=== PATIENT | female | born 1990 | race Caucasian/White ===

== ENCOUNTER 2024-12-14 19:38 | Emergency (ER) | payer MEDICARE ==
[2024-12-14 21:12] VITALS: TEMP 98.8
--- NOTE | 2024-12-14 21:27 | ERPHSYRPT ---
- History of Present Illness Patient Subjective Stated Complaint: pt reports cold symptoms beginning yesterday, states she has been having chills and sweating. pt denies pain. reports her anxiety is high. Triage Nursing Assessment: pt is aox3, pt is in no apparent distress, pupils perrl, afebrile, resps easy and non labored, cap refill < 3 seconds, radial pulses strong and equal, pt skin moist, warm, intact. Physician History: Cough and congestion, onset of symptoms yesterday Timing/Duration: yesterday Severity of Dyspnea-Max: moderate Severity of Dyspnea-Current: moderate Associated Symptoms: cough Allergies/Adverse Reactions: Penicillins Allergy (Verified 12/14/24 21:13) Rash Home Medications: Escitalopram Oxalate [Lexapro] 20 mg PO DAILY 12/14/24 [History] Venlafaxine HCl 37.5 mg [Effexor 37.5 mg] 37.5 mg PO DAILY 12/14/24 [History] Hx Tetanus, Diphtheria Vaccination/Date Given: (UNK) Hx Influenza Vaccination/Date Given: No Hx Pneumococcal Vaccination/Date Given: No Immunizations Up to Date: No Travel Risk - International Travel Have you traveled outside of the country in past 3 weeks: No - Emerging Infectious Disease Are you exhibiting symptoms associated with any current EIDs: No - Past Medical History Pertinent Past Medical History: Yes Psycho-Social History: Anxiety, Depression Other Medical History: "anxiety seizures" - Past Surgical History Past Surgical History: No - Female History Hx Last Menstrual Period: 12/09/24 Hx Now: No - Social History Smoking Status: Never smoker Exposure to second hand smoke: No Drug Use: none - Social Determinants of Health Will the patient participate in the screening: Yes Do you worry about a steady place to live?: No Do you have any problems with any of the following?: No known problems In the past 12 months,have you had to go without utilities?: No Transportation Issues: No Has anyone in your support network made you feel unsafe?: No Have you or anyone in your house had to go w/o enough food: No - Nursing Vital Signs Nursing Vital Signs: Initial Vital Signs Temperature 98.8 F 12/14/24 21:01 Pulse Rate 78 12/14/24 21:01 Respiratory Rate 20 12/14/24 21:01 Blood Pressure 114/79 12/14/24 21:01 O2 Sat by Pulse Oximetry 99 12/14/24 21:01 Pain Scale Pain Intensity 0 - Physical Exam General Appearance: no apparent distress, alert Eye Exam: PERRL/EOMI Ears, Nose, Throat Exam: pharyngeal erythema Neck Exam: normal inspection, supple, No meningismus, No carotid bruit Respiratory Exam: normal breath sounds, lungs clear Cardiovascular/Chest Exam: normal heart sounds, regular rate/rhythm Abdominal/Gastrointestinal Exam: soft, No tenderness, No distention, No mass Extremity Exam: non-tender, normal range of motion, normal inspection, no calf tenderness, no pedal edema Neurologic Exam: alert, oriented x 3, cooperative, diabetic educator II-XII nml as tested, sensation nml, No motor deficits Skin Exam: normal color, warm, No dry SpO2 Interpretation: normal SpO2: 98 Comments: Nasal congestion, postnasal drainage Ordered Tests: Active Orders 24 hr Category Date Time Status CHEST 2 VIEWS (PA AND LAT) Stat Exams 12/14/24 21:15 Taken Lab/Rad Data: Laboratory Results 12/14/24 12/14/24 Range/Units 21:30 21:30 Influenza Type A Ag NEGATIVE (NEGATIVE) Influenza Type B Ag NEGATIVE (NEGATIVE) RSV (PCR) NEGATIVE (NEGATIVE) SARS-CoV-2 (PCR) NEGATIVE (NEGATIVE) Group A Strep Antibody NOT DETECTED (NEGATIVE) - Progress Progress: unchanged Progress Note: 12/14/24 22:18 Discussed lab and chest x-ray results, outpatient follow up and treatment - Departure Departure Disposition: Home Clinical Impression: Upper respiratory infection, acute Condition: Stable Critical Care Time: No Referrals: PORFIRIO AGUIRRE MD [ACTIVE STAFF, FAMILY PRACTICE] - Follow up with PCP 7 days Instructions: Upper respiratory infection in adults - ED discharge instructions Additional Instructions: Afrin nasal spray or SUDAFED 15 mg for congestion, tylenol or Ibuprofen for pain
[2024-12-14 22:07] VITALS: BP 109/70; PULSE 77; RESP 16
[2024-12-14 22:08] LABS: INFLUENZA A NEGATIVE (NEGATIVE); INFLUENZA B NEGATIVE (NEGATIVE); RESPIRATORY SYNCTIAL VIRUS NEGATIVE (NEGATIVE); SARS-CoV-2 Xpert Express NEGATIVE (NEGATIVE)
[2024-12-14 22:24] VITALS: O2SAT 98
--- NOTE | 2024-12-15 08:39 | XRAY ---
Indication: Cough. Comparison: None PA/lateral chest demonstrates normal heart, lungs, and bony thorax.
== END 2024-12-14 22:32 | disposition home or self-care (01) ==
LOC: ED 19:38
DX: J06.9 Acute upper respiratory infection, unspecified (principal); R05.1 Acute cough; Z79.899 Other long term (current) drug therapy